=== PATIENT | female | born 1965 | race Caucasian/White ===

== ENCOUNTER 2017-06-23 20:27 | Emergency (ER) | payer MEDICAID ==
[~2017-06-23] VITALS: Ht 157.5 cm; Wt 109.0 kg
[~2017-06-23 20:27] MED LIST: ARIP20TA2; BUSP-29; DULO60CA44; ESCI20TA36; GLIP10TA10; INSASP; INSULIN; LORA2TAB95; TRAZ-132
[2017-06-23 22:37] VITALS: BP 119/76
[2017-06-23] MEDS ORDERED: TRAMADOL 50MG TABLET PO ONE (22:45)
== END 2017-06-23 23:04 | disposition home or self-care (01) ==
LOC: ER 21:24
DX: N64.4 Mastodynia (principal); E11.9 Type 2 diabetes mellitus without complications; Z90.710 Acquired absence of both cervix and uterus; Z79.4 Long term (current) use of insulin
CPT/HCPCS: 99282; Z7610

== ENCOUNTER 2018-01-22 20:07 | Emergency (ER) | payer MEDICAID ==
[~2018-01-22] VITALS: Ht 154.9 cm; Wt 105.0 kg
[2018-01-22] MEDS ORDERED: METOCLOPRAMIDE HCL 10MG/2ML VIAL IV STA (23:16)
[2018-01-22] MEDS ORDERED: SODIUM CHLORIDE 0.9% 1,000 ML IV ONE (23:16)
[2018-01-22 23:36] LABS: BASOPHILS % 0.8 % (0.0-2.0); EOSINOPHILS % 5.4 % (0.0-5.0); HEMATOCRIT. 38.9 % (36.0-48.0); LYMPHOCYTES % 37.7 % (20.0-50.0); MEAN CORPUSCULAR VOLUME 90.1 fL (81.0-99.0); MEAN PLATELET VOLUME 8.4 fl (7.4-10.4); MONOCYTES % 5.1 % (2.0-8.0); PLATELET 214 x1000/uL (130-400); RED BLOOD CELL COUNT 4.32 mill/uL (4.2-5.4); RED CELL DISTRIBUTION WIDTH 13.9 % (11.6-14.6)
[2018-01-22 23:43] LABS: CHLORIDE 97 mEq/L (98-107)
[2018-01-22 23:44] LABS: PROTHROMBIN TIME 10.7 sec (9.4-11.6)
[2018-01-22 23:45] LABS: CLARITY URINE CLEAR (CLEAR); COLOR URINE YELLOW (YELLOW); KETONES URINE NEGATIVE (NEGATIVE); LEUKOCYTE ESTERASE URINE NEGATIVE (NEGATIVE); NITRITE URINE NEGATIVE (NEGATIVE); OCCULT BLOOD URINE NEGATIVE (NEGATIVE); PH URINE 7.5 (4.5-8.0); PROTEIN URINE NEGATIVE (NEGATIVE); SPECIFIC GRAVITY URINE 1.025 (1.005-1.030)
[2018-01-22 23:49] LABS: BETA HYDROXYBUTYRATE 0.1 mMol/L (0.0-0.3)
[2018-01-23 03:20] VITALS: BP 110/75
== END 2018-01-23 04:12 | disposition home or self-care (01) ==
LOC: CANBEDREQ 01-23 02:27 → ER 01-23 04:01
DX: E11.65 Type 2 diabetes mellitus with hyperglycemia (principal); R10.9 Unspecified abdominal pain; R06.02 Shortness of breath; Z90.710 Acquired absence of both cervix and uterus; Z79.4 Long term (current) use of insulin
CPT/HCPCS: 36415; 71045; 74176; 80053; 81003; 82010; 82962; 83690; 84484; 85025; 85610; 93005; 96361; 96374; 99285; J2765; J7030; Z7610

== ENCOUNTER 2019-05-04 16:06 | Inpatient (IN) | payer MEDICAID ==
[~2019-05-04] VITALS: Ht 157.5 cm; Wt 109.3 kg
[~2019-05-04 16:06] MED LIST changes: -TRAZ-132; +TRAZ-213
[2019-05-04] MEDS ORDERED: SODIUM CHLORIDE 0.9% 1,000 ML IV ONE (16:30)
[2019-05-04] MEDS ORDERED: ONDANSETRON HCL 4MG/2ML INJ IV STA (16:30)
[2019-05-04] MEDS ORDERED: ASPIRIN 325MG TABLET PO ONE (17:30)
[2019-05-04 17:32] LABS: BASOPHILS % 0.4 % (0.0-2.0); EOSINOPHILS % 1.9 % (0.0-5.0); HEMATOCRIT. 43.2 % (36.0-48.0); HEMOGLOBIN. 14.4 g/dL (12.0-16.0); LYMPHOCYTES % 38.2 % (20.0-50.0); MEAN CORPUSCULAR HEMOGLOBIN 30.1 pg (28.0-32.0); MEAN CORPUSCULAR VOLUME 89.8 fL (81.0-99.0); MEAN PLATELET VOLUME 9.2 fl (7.4-10.4); MONOCYTES % 6.5 % (2.0-8.0); PLATELET 201 x1000/uL (130-400)
[2019-05-04 17:38] LABS: CHLORIDE 100 mEq/L (98-107)
[2019-05-04 17:39] LABS: PROTHROMBIN TIME 10.3 sec (9.6-11.0)
[2019-05-04 17:45] LABS: ETHANOL BLOOD < 10 mg/dL
[2019-05-04 17:47] LABS: LDL CHOLESTEROL 100 mg/dL (5-100)
[2019-05-04 17:49] LABS: CREATINE KINASE 70 IU/L (26-192)
[2019-05-04 17:50] LABS: BETA HYDROXYBUTYRATE 0.1 mMol/L (0.0-0.3)
[2019-05-04] MEDS ORDERED: INSULIN REGULAR (HUMULIN R) 300UNITS/3ML IV ONE (18:15)
[2019-05-04 18:21] LABS: CLARITY URINE CLEAR (CLEAR); COLOR URINE YELLOW (YELLOW); KETONES URINE NEGATIVE (NEGATIVE); LEUKOCYTE ESTERASE URINE NEGATIVE (NEGATIVE); NITRITE URINE NEGATIVE (NEGATIVE); OCCULT BLOOD URINE NEGATIVE (NEGATIVE); PH URINE 7.5 (4.5-8.0); PROTEIN URINE NEGATIVE (NEGATIVE); SPECIFIC GRAVITY URINE 1.072 (1.005-1.030)
[2019-05-04] MEDS ORDERED: IOHEXOL-350 100 ML BOTTLE ONE (18:27)
[2019-05-04 18:44] LABS: *AMPHETAMINES SCREEN URINE NEGATIVE (NEGATIVE); *BARBITURATES SCREEN URINE NEGATIVE (NEGATIVE); *BENZODIAZEPINES SCREEN URINE NEGATIVE (NEGATIVE); *COCAINE SCREEN URINE NEGATIVE (NEGATIVE); METHADONE URINE SCREEN NEGATIVE (NEGATIVE); OPIATES URINE SCREEN NEGATIVE (NEGATIVE)
[2019-05-04 18:45] LABS: CANNABINOID URINE SCREEN PRESUMTIVE POSITIVE (NEGATIVE); PHENCYCLIDINE URINE SCREEN NEGATIVE (NEGATIVE)
[2019-05-04 23:45] VITALS: BP 147/81
[2019-05-05] VITALS: BP 147/81
[2019-05-05] MEDS ORDERED: DEXTROSE 50% WATER 50ML SYRINGE IV PRN (01:15)
[2019-05-05] MEDS ORDERED: CLONIDINE 0.1MG TABLET PO PRN (01:15)
[2019-05-05] MEDS ORDERED: GABA-531 PO (01:19)
[2019-05-05 04:00] VITALS: BP 122/72
[2019-05-05] MEDS: BLOOD SUGAR DIAGNOSTIC STRIP TEST SCH ×4 (06:29→21:00)
[2019-05-05] MEDS: ACETAMINOPHEN 325MG TABLET PO PRN (06:29)
[2019-05-05] MEDS: INSULIN LISPRO 100 UNITS/ML SUBCUT SCH ×4 (06:33→22:40)
[2019-05-05 07:22] LABS: CHLORIDE 102 mEq/L (98-107)
[2019-05-05 07:29] LABS: BASOPHILS % 0.3 % (0.0-2.0); EOSINOPHILS % 2.7 % (0.0-5.0); HEMOGLOBIN. 14.1 g/dL (12.0-16.0); LYMPHOCYTES % 35.9 % (20.0-50.0); MEAN CORPUSCULAR HEMOGLOBIN 30.1 pg (28.0-32.0); MEAN CORPUSCULAR VOLUME 89.9 fL (81.0-99.0); MEAN PLATELET VOLUME 9.2 fl (7.4-10.4); MONOCYTES % 7.1 % (2.0-8.0); PLATELET 193 x1000/uL (130-400); RED BLOOD CELL COUNT 4.67 mill/uL (4.2-5.4)
[2019-05-05 08:00] VITALS: BP 127/74
[2019-05-05] MEDS: ENOXAPARIN 30MG/0.3ML SYR SUBCUT SCH ×2 (08:47→22:38)
[2019-05-05 12:00] VITALS: BP 129/77
[2019-05-05] MEDS ORDERED: ONDANSETRON HCL 4MG/2ML INJ IV PRN (15:45)
[2019-05-05 16:00] VITALS: BP 123/78
[2019-05-05] MEDS: ASPIRIN 81MG TABLET PO SCH (18:28)
[2019-05-05 20:00] VITALS: BP 122/77
[2019-05-05] MEDS: GABAPENTIN 300MG CAPSULE PO SCH (22:38)
[2019-05-06] VITALS: BP 117/70
[2019-05-06 03:52] VITALS: BP 115/55
[2019-05-06] MEDS: BLOOD SUGAR DIAGNOSTIC STRIP TEST SCH ×3 (05:23→16:45)
[2019-05-06 05:46] LABS: BASOPHILS % 0.4 % (0.0-2.0); EOSINOPHILS % 2.9 % (0.0-5.0); HEMATOCRIT. 44.2 % (36.0-48.0); HEMOGLOBIN. 14.8 g/dL (12.0-16.0); LYMPHOCYTES % 37.9 % (20.0-50.0); MEAN CORPUSCULAR HEMOGLOBIN 30.1 pg (28.0-32.0); MEAN PLATELET VOLUME 8.9 fl (7.4-10.4); MONOCYTES % 7.4 % (2.0-8.0); NEUTROPHILS % 51.4 % (40.0-76.0); PLATELET 192 x1000/uL (130-400); RED BLOOD CELL COUNT 4.91 mill/uL (4.2-5.4)
[2019-05-06 06:04] LABS: CHLORIDE 102 mEq/L (98-107)
[2019-05-06] MEDS: GABAPENTIN 300MG CAPSULE PO SCH ×2 (06:53→14:50)
[2019-05-06] MEDS: INSULIN LISPRO 100 UNITS/ML SUBCUT SCH ×3 (06:56→17:15)
[2019-05-06 08:00] VITALS: BP 132/84
[2019-05-06] MEDS: ASPIRIN 81MG TABLET PO SCH (08:37)
[2019-05-06] MEDS: ENOXAPARIN 30MG/0.3ML SYR SUBCUT SCH (08:37)
[2019-05-06] MEDS: ACETAMINOPHEN 325MG TABLET PO PRN (10:51)
[2019-05-06 16:00] VITALS: BP 119/77
[2019-05-06 16:44] VITALS: BP 119/77
[2019-05-06] MEDS ORDERED: SITA100T11 MT (17:19)
[2019-05-06] MEDS ORDERED: ASPI-1393 MT (17:19)
== END 2019-05-06 17:50 | disposition home or self-care (01) | DRG 347 ==
LOC: ER 16:06 → 5WST 18:04 → EDBEDREQ 18:10 → EDBEDREQSVC 18:10 → ENRESERV 20:49
PROVIDERS: ADMIT Internal Medicine; ATTEND Internal Medicine
DX: M48.02 Spinal stenosis, cervical region (principal); E11.65 Type 2 diabetes mellitus with hyperglycemia; I25.10 Atherosclerotic heart disease of native coronary artery without angina pectoris; R20.2 Paresthesia of skin; F12.90 Cannabis use, unspecified, uncomplicated; I10 Essential (primary) hypertension; Z90.710 Acquired absence of both cervix and uterus; F41.9 Anxiety disorder, unspecified; Z79.84 Long term (current) use of oral hypoglycemic drugs
CPT/HCPCS: 36415; 70496; 70498; 70551; 71045; 72141; 80048; 80305; 80320; 81003; 82010; 82550; 82962; 83036; 83721; 83735; 83880; 84484; 93005; 93306; 97162; 97166; 99291; J1650; J1815; J2405; J7030; Q9967; G0480

== ENCOUNTER 2019-06-12 16:53 | Emergency (ER) | payer MEDICAID ==
[~2019-06-12] VITALS: Ht 157.5 cm; Wt 105.0 kg
[~2019-06-12 16:53] MED LIST changes: -ARIP20TA2; +ASPI-1393 MT; -BUSP-29; -DULO60CA44; -ESCI20TA36; +GABA-531 PO; -GLIP10TA10; -INSASP; -INSULIN; -LORA2TAB95; +SITA100T11 MT; -TRAZ-213
[2019-06-12] MEDS ORDERED: KETOROLAC 60MG/2ML VIAL IM ONE (18:45)
[2019-06-12] MEDS ORDERED: HYDROCODONE/ACETAMINOPHEN 5/325MG TABLET PO ONE (18:45)
[2019-06-12 19:30] VITALS: BP 145/83
== END 2019-06-12 20:10 | disposition home or self-care (01) ==
LOC: ER 16:53
DX: M75.31 Calcific tendinitis of right shoulder (principal); E11.9 Type 2 diabetes mellitus without complications; Z90.710 Acquired absence of both cervix and uterus; Z86.73 Personal history of transient ischemic attack (TIA), and cerebral infarction without residual deficits; Z79.899 Other long term (current) drug therapy
CPT/HCPCS: 73030; 82962; 96372; 99284; J1885

== ENCOUNTER 2019-10-26 04:59 | Emergency (ER) | payer MEDICAID ==
[~2019-10-26] VITALS: Ht 157.5 cm; Wt 105.0 kg
[~2019-10-26 04:59] MED LIST changes: -ASPI-1393 MT; +ASPI-1497 MT
[2019-10-26] MEDS ORDERED: KETOROLAC 60MG/2ML VIAL IM ONE (06:30)
[2019-10-26 06:55] VITALS: BP 131/82
== END 2019-10-26 08:08 | disposition home or self-care (01) ==
LOC: ER 05:29
DX: M79.662 Pain in left lower leg (principal); E11.9 Type 2 diabetes mellitus without complications; R03.0 Elevated blood-pressure reading, without diagnosis of hypertension
CPT/HCPCS: 73590; 96372; 99283; J1885

== ENCOUNTER 2023-10-21 17:30 | Emergency (ER) | payer OTHER ==
[~2023-10-21] VITALS: Ht 172.7 cm; Wt 103.0 kg
[~2023-10-21 17:30] MED LIST changes: +AMOX250S70 PO; -GABA-531 PO; +GABA-532 PO; +LEVO750T68 MT; -SITA100T11 MT
[2023-10-21 17:39] VITALS: BP 142/77; PULSE 97; RESP 12; TEMP 98.4; O2SAT 98
[2023-10-21] MEDS ORDERED: AMOX1TAB16 MT (18:47)
[2023-10-21] MEDS ORDERED: SULF1TAB48 MT (18:47)
[2023-10-21] MEDS ORDERED: IBUP-2029 MT (18:48)
== END 2023-10-21 19:20 | disposition home or self-care (01) ==
LOC: ER 17:39
DX: L03.211 Cellulitis of face (principal); E11.9 Type 2 diabetes mellitus without complications; Z90.710 Acquired absence of both cervix and uterus
CPT/HCPCS: 99283

== ENCOUNTER 2025-02-19 16:12 | Emergency (ER) | payer OTHER ==
[~2025-02-19] VITALS: Ht 160 cm; Wt 114.0 kg
[~2025-02-19 16:12] MED LIST changes: +AMOX1TAB16 MT; +GABA-1180 PO; -GABA-532 PO; +IBUP-2029 MT; +SULF1TAB48 MT
[2025-02-19 16:19] VITALS: O2SAT 97
[2025-02-19 17:50] LABS: BASOPHILS % 0.6 % (0.0-2.0); EOSINOPHILS % 2.7 % (0.0-5.0); HEMATOCRIT. 42.2 % (36.0-48.0); HEMOGLOBIN. 14.0 g/dL (12.0-16.0); LYMPHOCYTES % 35.1 % (20.0-50.0); MEAN PLATELET VOLUME 8.6 fl (7.4-10.4); MONOCYTES % 5.4 % (2.0-8.0); NEUTROPHILS % 56.2 % (40.0-76.0); PLATELET 254 x1000/uL (130-400); RED BLOOD CELL COUNT 4.85 mill/uL (4.2-5.4); RED CELL DISTRIBUTION WIDTH 14.6 % (11.6-14.6)
[2025-02-19 18:03] LABS: CREATININE 0.7 mg/dL (0.6-1.0); UREA NITROGEN BLOOD 9 mg/dL (9-23)
[2025-02-19 18:06] LABS: TROPONIN I HIGH SENSITIVITY < 4 ng/L (3.0-34)
[2025-02-19 21:18] LABS: COLOR URINE DARK YELLOW (YELLOW)
[2025-02-19 21:19] LABS: CLARITY URINE CLEAR (CLEAR); GLUCOSE URINE 3+ (NEGATIVE); KETONES URINE TRACE (NEGATIVE); NITRITE URINE NEGATIVE (NEGATIVE); OCCULT BLOOD URINE NEGATIVE (NEGATIVE); PH URINE 7.0 (4.5-8.0); PROTEIN URINE 2+ (NEGATIVE); SPECIFIC GRAVITY URINE 1.034 (1.005-1.030)
[2025-02-19 21:20] LABS: LEUKOCYTE ESTERASE URINE NEGATIVE (NEGATIVE); UROBILINOGEN URINE 1.0 E.U./dL (0.2-1.0)
[2025-02-19] MEDS: MECLIZINE 25MG TABLET PO ONE (21:20)
[2025-02-19] MEDS: ONDANSETRON 4MG ODT PO ONE (21:21)
[2025-02-19 21:33] LABS: BACTERIA URINE TRACE; RBC URINE 0-2 /hpf (0-2); SQUAMOUS EPITHELIAL CELL URINE 1+ /lpf (RARE/1+); WBC URINE 0-2 /hpf (0-2)
[2025-02-19] MEDS: INSULIN REGULAR (HUMULIN R) 1000UNITS/10ML VIAL SUBCUT ONE (21:59)
[2025-02-19 22:28] VITALS: BP 150/74; PULSE 79; RESP 18; TEMP 36.7; O2SAT 99
[2025-02-19 23:51] LABS: ASPARTATE AMINOTRANSFERASE 23 IU/L (<34); BILIRUBIN DIRECT 0.1 mg/dL (<=3.0); BILIRUBIN TOTAL 0.3 mg/dL (0.1-1.0); PHOSPHORUS 2.5 mg/dL (2.5-4.9); PROTEIN TOTAL 6.9 g/dL (6.0-8.3)
== END 2025-02-19 22:35 | disposition home or self-care (01) ==
LOC: ER 16:12
DX: R42 Dizziness and giddiness (principal); E11.9 Type 2 diabetes mellitus without complications; I10 Essential (primary) hypertension; Z79.4 Long term (current) use of insulin; Z79.82 Long term (current) use of aspirin; Z79.899 Other long term (current) drug therapy
CPT/HCPCS: 99285; 71045; 80076; 80048; 81003; 82962; 83880; 83735; 84100; 85025; 84484; 36415; 93005; 96372; J8597; Q0162; J1815